=== PATIENT | female | born 1965 | race Caucasian/White ===

== ENCOUNTER → 2020-06-03 | Day surgery (SDC) | payer OTHER ==
[~2020-06-03] VITALS: Ht 157.5 cm; Wt 86.2 kg
[~2020-06-03] MED LIST: DESYREL50 MG PO; ELAVIL50 MG PO; HYDROCODON-ACE1 EAC2 PO; IBUPROFEN800 MG PO; METOPROLOL SUCC25 MG PO; NITROQUIK SL0.4 MG SL
[2020-06-03 09:56] LABS: HCT 43.4 % (37.0-47.0); HGB 14.3 g/dl (12.5-16.0); MCH 31.6 pg (25.0-31.0); MCHC 32.9 g/dL (32.0-36.0); MCV 95.8 fL (78.0-100.0); MPV 9.2 fL (6.0-9.5); RBC 4.53 M/uL (4.20-5.40); RDW 12.5 % (11.5-14.0); WBC 9.4 K/uL (4.0-10.5)
[2020-06-03 10:10] LABS: ALBUMIN 3.8 g/dL (3.4-5.0); BILIRUBIN - TOTAL 0.4 mg/dL (0.2-1.0); CREATININE 0.74 mg/dL (0.51-0.95); GLOBULIN (CALCULATION) 3.6 g/dL; POTASSIUM 3.7 mmol/L (3.5-5.1); TOTAL PROTEIN 7.4 g/dL (6.4-8.2)
== END | disposition home or self-care (01) ==
LOC: FAS 09:27
PROVIDERS: Surgery
DX: C90.00 Multiple myeloma not having achieved remission (principal); I10 Essential (primary) hypertension; R00.2 Palpitations; R07.9 Chest pain, unspecified; M19.90 Unspecified osteoarthritis, unspecified site; F32.9 Major depressive disorder, single episode, unspecified; Z79.899 Other long term (current) drug therapy; Z98.51 Tubal ligation status; Z90.710 Acquired absence of both cervix and uterus; Z87.891 Personal history of nicotine dependence; Z98.890 Other specified postprocedural states; Z20.822 Contact with and (suspected) exposure to COVID-19
CPT/HCPCS: 36415; 80053; J2250; J7120; U0002